=== PATIENT | male | born 1985 | race Caucasian/White ===

== ENCOUNTER 2017-08-10 04:19 | Emergency (ER) | payer BC ==
[2017-08-10 04:51] LABS: #Basophils 0.1 thou/uL (0.0-0.2); #Eosinphils 0.2 thou/uL (0.0-0.7); #Lymphocytes 2.8 thou/uL (1.20-3.40); #Monocytes 0.7 thou/uL (0.11-0.59); #Neutrophils 4.4 thou/uL (1.40-6.50); %Basophils 0.8 % (0.0-1.0); %Eosinophils 2.5 % (0.0-10.0); %Monocytes 8.7 % (0.0-10.0); Hematocrit 49.1 % (42.0-52.0); Mean Platelet Volume 7.7 fL (7.4-10.4); Red Blood Cell (RBC) Count 5.43 mill/uL (4.70-6.10); White Blood Cell (WBC) Count 8.2 thou/uL (4.8-10.8)
[2017-08-10 05:09] LABS: Troponin I Less than 0.010 ng/mL (< 0.028)
[2017-08-10 05:58] LABS: ALT (SGPT) 34 U/L (8-55); AST (SGOT) 17 U/L (5-34); Alkaline Phosphatase 64 U/L (40-150); Anion Gap 13 mmol/L (10-20); BUN (Urea Nitrogen) 16 mg/dL (8.9-20.6); Bilirubin, Total 1.1 mg/dL (0.2-1.2); CK (CPK) 119 U/L (30-200); Calc. Creatinine Clearance 0 mL/min (70-130); Calcium 9.5 mg/dL (7.8-10.44); Carbon Dioxide 26 mmol/L (22-29); Chloride 104 mmol/L (98-107); Estimated GFR-MDRD Greater than 90; Globulin 3.2 g/dL (2.4-3.5); Protein, Total 7.5 g/dL (6.0-8.3)
--- NOTE | 2017-08-10 08:45 | RAD ---
PORTABLE UPRIGHT FRONTAL CHEST RADIOGRAPH: DATE: 08/10/17. COMPARISON: None. HISTORY: Palpitations, tachycardia. FINDINGS: The lungs are clear. Heart and mediastinal contours are within normal limits. IMPRESSION: No acute findings. POS: OFF
== END 2017-08-10 06:23 | disposition home or self-care (01) ==
LOC: ERS 04:19
DX: R00.2 Palpitations (principal)
CPT/HCPCS: 36415; 71010; 80053; 82553; 84443; 84484; 85025; 93005